=== PATIENT | female | born 1955 | race Caucasian/White ===

== ENCOUNTER 2019-03-12 09:15 | Inpatient (IN) | payer OTHER ==
[~2019-03-12] VITALS: Ht 160 cm; Wt 97.1 kg
[~2019-03-12 09:15] MED LIST: AMLODIPINE PO; GABAPENTIN100 MG PO; HYDRALAZINE HCL10 MG PO; NORVASC2.5 M1 PO; NORVASC5 MG PO; ZESTRIL40 M1 PO; ZOCOR20 MG PO
[2019-03-12] MEDS ORDERED: LISINOP (12:52)
[2019-03-12] MEDS ORDERED: JANUMET 50-1,01 EACH PO (12:53)
[2019-03-12] MEDS ORDERED: SULINDAC200 MG PO (12:53)
[2019-03-12] MEDS ORDERED: LOPRESSOR25 MG PO (12:53)
[2019-03-20] MEDS ORDERED: LISINOPRIL30 MG PO (15:49)
[2019-03-22] MEDS ORDERED: ELIQUIS2.5 MG PO (16:35)
[2019-03-22] MEDS ORDERED: CEFADROXIL500 MG PO (16:35)
[2019-03-22] MEDS ORDERED: PERCOCET 5-3251 EACH PO (16:35)
== END 2019-03-22 20:58 | disposition home or self-care (01) | DRG 470 ==
LOC: O/R 03-20 06:00 → SURH 03-20 06:00
PROVIDERS: ADMIT Orthopaedic Surgery
PROC: 0MNP0ZZ Release Left Knee Bursa and Ligament, Open Approach (ICD-10-PCS; 2019-03-20)
PROC: 0SRD0J9 Replacement of Left Knee Joint with Synthetic Substitute, Cemented, Open Approach (ICD-10-PCS; principal; 2019-03-20 09:30)
DX: M17.12 Unilateral primary osteoarthritis, left knee (principal); D62 Acute posthemorrhagic anemia; M22.12 Recurrent subluxation of patella, left knee; I10 Essential (primary) hypertension; D24.2 Benign neoplasm of left breast; Z72.0 Tobacco use